=== PATIENT | female | born 1965 | race American Indian/Alaskan Native ===

== ENCOUNTER 2018-02-22 23:00 | Emergency (ER) | payer SELFPAY ==
[2018-02-22] MEDS ORDERED: ASPIRIN PO ONE (23:40)
[2018-02-22 23:59] LABS: Basophils # (Auto) 0.1 K/mm3 (0.0-0.1); Basophils % (Auto) 1.3 % (0.0-1.8); Eosinophils # (Auto) 0.1 K/mm3 (0.0-0.4); Eosinophils % (Auto) 0.9 % (0.0-4.3); Hematocrit 44.8 % (30.3-42.9); Hemoglobin 15.8 gm/dl (10.1-14.3); Lymphocytes # (Auto) 3.1 K/mm3 (1.2-5.4); Lymphocytes % (Auto) 35.4 % (13.4-35.0); Mean Corpuscular HGB Conc 35 % (30-34); Mean Corpuscular Hemoglobin 32 pg (28-32); Mean Corpuscular Volume 90 fl (79-97); Monocytes # (Auto) 0.5 K/mm3 (0.0-0.8); Monocytes % (Auto) 5.8 % (0.0-7.3); Platelet Count 221 K/mm3 (140-440); Red Blood Count 4.98 M/mm3 (3.65-5.03); Red Cell Distribution Width 13.4 % (13.2-15.2)
[2018-02-23 00:16] LABS: BUN/Creatinine Ratio 20; Blood Urea Nitrogen 16 mg/dL (7-17); Calcium 10.9 mg/dL (8.4-10.2); Hemolysis Index 17
--- NOTE | 2018-02-23 01:13 | Emergency Department Report ---
HPI - General Chief Complaint: Nosebleed Time Seen by Provider: 02/23/18 01:11 - HPI HPI: 53-year-old [facility] female presents to the emergency department with complaint of a nosebleed that started around 10 PM this evening. The patient called EMS when the bleeding would not stop. They use some ice and held pressure and eventually the bleeding did stop. She was found to have very elevated blood pressure. She does have a history of hypertension for which she takes hydrochlorothiazide. The patient also has a history of having some nosebleeds when her blood pressure gets very high. She realized that her blood pressure may be the issue and took a second hydrochlorothiazide this evening. She is visiting here from [place] and returned on March 12. ED Past Medical Hx - Past Medical History Previous Medical History?: Yes Hx Hypertension: Yes - Surgical History Past Surgical History?: Yes Additional Surgical History: hyster - Social History Smoking Status: Never Smoker Substance Use Type: Alcohol - Medications Home Medications: Home Medications Medication Instructions Recorded Confirmed Last Taken Type Amlodipine Besylate [Norvasc] 5 mg PO QDAY #30 tablet 02/23/18 Unknown Rx ED Review of Systems ROS: Stated complaint: NOSE BLEED Other details as noted in HPI Comment: All other systems reviewed and negative Constitutional: denies: chills, fever Eyes: denies: eye pain, eye discharge, vision change ENT: epistaxis. denies: ear pain, throat pain Respiratory: denies: cough, shortness of breath, wheezing Cardiovascular: denies: chest pain, palpitations Gastrointestinal: denies: abdominal pain, nausea, diarrhea Genitourinary: denies: urgency, dysuria, discharge Musculoskeletal: denies: back pain, joint swelling, arthralgia Skin: denies: rash, lesions Neurological: denies: headache, weakness, paresthesias Physical Exam - Physical Exam Vital Signs: Vital Signs 02/22/18 02/23/18 23:05 00:35 Temperature 97.8 F 97.4 F L Pulse Rate 89 76 Respiratory 18 18 Rate Blood Pressure 194/121 Blood Pressure 164/96 [Right] O2 Sat by Pulse 99 97 Oximetry Physical Exam: GENERAL: The patient is well-developed well-nourished. HENT: Normocephalic. Atraumatic. Patient has moist mucous membranes. Oropharynx is clear. There is no blood seen in either nasal passage. EYES: Extraocular motions are intact. Pupils equal reactive to light bilaterally. NECK: Supple. Trachea is midline. CHEST/LUNGS: Clear to auscultation. There is no respiratory distress noted. HEART/CARDIOVASCULAR: Regular. There is no tachycardia. There is no murmur. ABDOMEN: Abdomen is soft, nontender. Patient has normal bowel sounds. There is no abdominal distention. SKIN: Skin is warm and dry. NEURO: The patient is awake, alert, and oriented. The patient is cooperative. The patient has no focal neurologic deficits. The patient has normal speech. Cranial nerves II through XII grossly intact. MUSCULOSKELETAL: There is no tenderness or deformity. There is no limitation range of motion. There is no evidence of acute injury. ED Course Vital Signs 02/22/18 02/23/18 23:05 00:35 Temperature 97.8 F 97.4 F L Pulse Rate 89 76 Respiratory 18 18 Rate Blood Pressure 194/121 Blood Pressure 164/96 [Right] O2 Sat by Pulse 99 97 Oximetry ED Medical Decision Making - Lab Data Result diagrams: 02/22/18 23:42 02/22/18 23:42 - EKG Data -: EKG Interpreted by Me EKG shows normal: sinus rhythm, axis, intervals, QRS complexes, ST-T waves Rate: normal - EKG Data When compared to previous EKG there are: previous EKG unavailable Interpretation: normal EKG - Radiology Data Radiology results: image reviewed interpreted by me: Chest x-ray does not show any acute process. There are no pleural effusions, obvious pneumonia and there is no pneumothorax. - Medical Decision Making The patient had presented with complaint of epistaxis. She had been found to have elevated blood pressure. She is on hydrochlorothiazide. In checking the patient's nasal passages, no blood was seen or any source of the previous bleeding. I believe that the epistaxis could be related to the patient's blood pressure. At first her blood pressure went down to about a systolic of 160 but then started creeping back up. She was given a Catapres and her blood pressure once again improved. I'm starting the patient on some Norvasc to be added to her HCTZ. We discussed dietary changes including staying away from salts and caffeinated products. She has been given a referral for ENT but encouraged to see her primary care physician when she returns to [place]. She will return to the ER with any worsening of her symptoms or any acute distress. Apparently the patient had complained of some chest discomfort to EMS and/or triage but she has had no chest pain since I haven't seen her in the main emergency department. She did have an EKG that was normal without ST elevation MN, ischemia or dysrhythmia. Her chest x-ray did not show any acute process including no focal consolidation, pneumonia, pleural effusions or pneumothorax. Patient had blood work that showed a normal stable hemoglobin and a negative troponin. Critical Care Time: No Critical care attestation.: If time is entered above; I have spent that time in minutes in the direct care of this critically ill patient, excluding procedure time. ED Disposition Clinical Impression: Nosebleed Hypertension Qualifiers: Hypertension type: essential hypertension Qualified Code(s): I10 - Essential ( primary) hypertension Disposition: TO HOME OR SELFCARE Is pt being admited?: No Condition: Stable Instructions: Epistaxis (ED), Hypertension (ED) Additional Instructions: Please follow-up with your primary care physician when you return to [place]. I 'm giving her a referral for a local ear nose throat physician in case you need to follow up regarding your nosebleeds. I'm starting you on a second blood pressure medication called Norvasc/amlodipine. This medication is usually taken once per day, in the morning. Try and stay away from foods that are high in salt and caffeinated products to help with your blood pressure. Keep a blood pressure log. Return to the emergency Department with any worsening of your symptoms or any acute distress. If your nose starts to bleed again, blood pressure and hold it for 20 minutes with your head straight and level. If it is still bleeding after that, he may need to return to the emergency department for evaluation and /or packing. Prescriptions: Amlodipine Besylate [Norvasc] 5 mg PO QDAY #30 tablet Referrals: PRIMARY CARE, [Primary Care Provider] - as needed LEVY MONTESINOS MD [Staff Physician] - as needed Time of Disposition: 01:26
[2018-02-23] MEDS ORDERED: CATAPRES PO ONE (01:51)
[2018-02-23 02:45] VITALS: BP 169/101
== END 2018-02-23 02:45 | disposition home or self-care (01) ==
LOC: ED 23:00
DX: R04.0 Epistaxis (principal); I10 Essential (primary) hypertension; Z90.710 Acquired absence of both cervix and uterus; Z88.6 Allergy status to analgesic agent
CPT/HCPCS: 36415; 80048; 84484; 85025; 93005; 93010; 99284